=== PATIENT | female | born 1955 | race Caucasian/White ===

== ENCOUNTER 2018-10-25 19:28 | Emergency (ER) | payer BC ==
[~2018-10-25] VITALS: Ht 162.6 cm; Wt 59.0 kg
[2018-10-25] MEDS ORDERED: HYDR-3164 PO (21:29)
[2018-10-25] MEDS ORDERED: IBUP-1007 PO (21:29)
[2018-10-25 21:32] VITALS: BP 137/71
--- NOTE | 2018-10-25 22:01 | PHYS DOC ---
Past Medical History Past Medical History: Other Additional Past Medical Histor: Osteoperosis Past Surgical History: Hysterectomy Additional Past Surgical Histo: Bladder lift Alcohol Use: None Drug Use: None Adult General Chief Complaint Chief Complaint: HIP PAIN [facility] HPI Patient is a 63 year old female who presents with coccyx pain. Patient was ambulating up some stairs. She had a mechanical fall because she was carrying some objects. She was unable to catch herself. She landed directly on the sacrum and coccyx. She also struck the thoracic back on the corner of the stairs. She did not strike her head or have loss of consciousness. She presents to the ER today complaining of thoracic back pain as well as pain over the sacrum. The accident happened earlier today prior to arrival in the ER. No weakness, numbness, tingling. No headaches. No nausea or vomiting. She does have a known prior history of osteoporosis. Review of Systems Review of Systems Constitutional: Denies fever or chills Eyes: Denies change in visual acuity HENT: Denies nasal congestion Respiratory: Denies cough or shortness of breath Cardiovascular: No additional information not addressed in HPI GI: Denies nausea or vomiting Musculoskeletal: Denies back pain or joint pain Integument: Denies rash Neurologic: Denies headache, focal weakness All other systems were reviewed and found to be within normal limits, except as documented in this note. Allergies Allergies Allergies Coded Allergies Type Severity Reaction Last Updated Verified No Known Drug Allergies 10/25/18 No Physical Exam Physical Exam Constitutional: Well developed, well nourished, no acute distress HENT: Normocephalic, atraumatic, bilateral external ears normal, oropharynx moist Eyes: PERRLA, EOMI, conjunctiva normal Neck: Normal range of motion, no tenderness Cardiovascular:Heart rate regular rhythm, no murmur Lungs & Thorax: Bilateral breath sounds clear to auscultation Abdomen: Bowel sounds normal, soft Skin: Warm, dry Back: TTP over the midline thoracic spine and coccyx. Bilat hips placed in OMAYRA position and direct compression applied but this exam is not tender. Extremities: No tenderness Neurologic: Alert and oriented X 3 Psychologic: Affect normal Current Patient Data Vital Signs Vital Signs Date Time Temp Pulse Resp B/P (MAP) Pulse Ox O2 Delivery O2 Flow Rate FiO2 10/25/18 20:10 97.5 87 16 141/72 (95) 99 Room Air 97.5 EKG EKG [] Radiology/Procedures Radiology/Procedures [] Course & Med Decision Making Course & Med Decision Making Pertinent Labs and Imaging studies reviewed. (See chart for details) Patient evaluated in the ER after a fall. Primary complaint of coccyx pain and T-spine pain. Plain films completed. No acute fracture seen. Discharged to home with ibuprofen and norco for severe pain. Return precautions discussed. F /u with PCP or come back to ER for new or worsening symptoms. Dragon Disclaimer Dragon Disclaimer This electronic medical record was generated, in whole or in part, using a voice recognition dictation system. Departure Departure Impression: Primary Impression: Contusion, back Additional Impression: Contusion of coccyx Disposition: HOME, SELF-CARE Condition: GOOD Patient Instructions: Contusion Scripts Hydrocodone/Apap 5-325 (NORCO 5-325 TABLET) 1 Each Tablet 1-2 EACH PO PRN Q6HRS PRN for SEVERE PAIN, #10 as needed for pain Prov: EMIGDIO SERRATO DO 10/25/18 Ibuprofen (IBUPROFEN) 600 Mg Tablet 600 MG PO PRN Q6HRS PRN for PAIN, #20 TAB take with food or milk Prov: EMIGDIO SERRATO DO 10/25/18 Problem Qualifiers EMIGDIO SERRATO DO Oct 25, 2018 22:01
--- NOTE | 2018-10-26 00:05 | RAD ---
Three-view thoracic spine radiographs 10/25/2018 CLINICAL HISTORY: Mid back pain post fall. AP, lateral and swimmer's lateral digital radiographs of the thoracic spine were obtained. Minimal S-shaped curvature of the thoracolumbar spine is seen. No fracture or subluxation of the thoracic vertebrae is seen. Degenerative changes consisting of varying degrees of disc space narrowing, vertebral endplate sclerosis and minimal anterior vertebral body osteophyte formationare seen throughout the thoracic disc spaces. No paravertebral soft tissue swelling is noted. IMPRESSION: No fracture or subluxation of the thoracic vertebrae is seen. Electronically signed by: Julio Cesar Velazquez MD (10/26/2018 12:01 AM) [id number]
--- NOTE | 2018-10-26 00:07 | RAD ---
Three-view sacrum/coccyx radiographs 10/25/2018 CLINICAL HISTORY: Sacral/coccygeal pain post fall earlier today. Two AP and a lateral digital radiographs of the sacrum/coccyx were obtained. No sacral or coccygeal fracture is seen. Mild degenerative changes are seen involving both SI joints and both hips. IMPRESSION: No sacral or coccygeal fracture is seen. Electronically signed by: Julio Cesar Velazquez MD (10/26/2018 12:03 AM) [facility]
== END 2018-10-25 21:35 | disposition home or self-care (01) ==
LOC: ER 19:28
DX: S30.0XXA Contusion of lower back and pelvis, initial encounter (principal); S20.222A Contusion of left back wall of thorax, initial encounter; S20.221A Contusion of right back wall of thorax, initial encounter; Z90.710 Acquired absence of both cervix and uterus; W10.8XXA Fall (on) (from) other stairs and steps, initial encounter; Y93.01 Activity, walking, marching and hiking; Y92.89 Other specified places as the place of occurrence of the external cause; Y99.8 Other external cause status
CPT/HCPCS: 72072; 72220; 99283